=== PATIENT | female | born 1960 | race Caucasian/White ===

== ENCOUNTER 2020-08-16 07:57 | Observation (INO) | payer BC ==
[~2020-08-16] VITALS: Ht 157.5 cm; Wt 125.5 kg
--- NOTE | ~2020-08-16 | HEMODYNAMI ---
PATIENT:KIMBERLY KRUSE MEDICAL RECORD: [id number] : 58 [facility]# [id number] ADMISSION DATE: 08/16/20 Generatedon:114:15 Patient name: KIMBERLY KRUSE Patient #: [id number] SSN: [id number] : 1960 Date of study: 08/17/2020 Page: Of Hemodynamic Procedure Report Patient Data Patient Demographics First Name: KIMBERLY Gender: Female Last Name: AIXA : 1960 [facility] Initial: L Age: 60 year(s) Patient #: [id number] Race: Unknown SSN: [id number] Additional ID: [id number] Contact details [address]: [address] [place] [address] 8 State: [place] City: [place] Zip code: [address] Past Medical History Allergies Allergen Reaction Date Comments Reported Other allergy 08/17/2020 pcn, sULFA, mORPHINE Admission Admission Data Admission Date: 08/16/2020 Admission Time: 13:11 Admit Source: Emergency Insurance Payor: Private department health insurance Room #: D.2118 [facility] #: [id number] Height (in.): 61.81 BSA: 2.19 (m2) Height (cm.): 157 BMI: 50.71 (kg/m2) Weight (lbs.): 275.58 Weight (kg.): 125 Lab Results Lab Result Date: 08/17/2020 Lab Result Time: 0:00 Biochemistry Name Units Result Min Max BUN mg/dl 12 --(-*--)-- 7 18 Creatinine mg/dl 0.8 --(-*--)-- 0.6 1.3 eGFR ml/min 76.95799 *-(----)-- 90 120 NONAFRICAN CBC Name Units Result Min Max Hemoglobin g/dl 12.4 *-(----)-- 13.5 17.5 Procedure Procedure Types Cath Procedure Diagnostic Procedure [facility] w/Coronaries FFR/IVUS FFR Initial Sedation Charges Moderate Sedation 25-39 minutes Procedure Description Procedure Date Procedure Date: 08/17/2020 Procedure Start Time: 13:53 Procedure End Time: 14:14 Procedure Staff Name Function Rico Helm MD Performing Physician Loreta Cabral RT Monitor Ceasar Anthony RN Nurse Nataliia Ward RT Scrub Procedure Data Cath Procedure Fluoroscopy Diagnostic fluoroscopy Total fluoroscopy Time: 4.4 time: 4.4 min min Diagnostic fluoroscopy Total fluoroscopy dose: 972 dose: 972 mGy mGy Contrast Material Contrast Material Type Amount (ml) Isovue 300 77 Entry Location Entry Primary Successful Side Size Upsize Upsize Entry Closure Succes sful Closure Location (Fr) 1 (Fr) 2 (Fr) Remarks Device Remarks Femoral Right 5 Fr Exoseal artery Estimated blood loss: 10 ml Diagnostic catheters Device Type Used For End Catheter Placement MULTIPACK JL 4.0 5Fr Procedure catheter MULTIPACK 3DRC 5Fr Procedure catheter MULTIPACK Pigtail 5 Fr Ventriculography catheter MULTIPACK JL 4.0 5Fr Procedure catheter Procedure Complications No complications Procedure Medications Medication Administration Route Dosage 0.9% NaCl I.V. 100 ml/hr Oxygen etCO2 Nasal cannula 2 l/min Heparin Flush Bag added to field 2 bags (1000units/500ml NS) Lidocaine 2% added to field 20 Versed I.V. 1 mg Fentanyl I.V. 50 mcg Versed I.V. 1 mg Fentanyl I.V. 50 mcg Heparin Bolus I.V. 2000 units Hemodynamics Rest BSA: 2.19 (m2) HGB: 12.4 (g/dl) O2 Consumption: Estimated: 211.32 (ml/min) O2 Co nsumption indexed: Estimated:96.49 (ml/min/m) Heart Rate: 75 (bpm) Pressure Samples Time Site Value (mmHg) Purpose Heart Use Rate(bpm) 13:58 LV 121/8,13 Snapshot 81 Gradients Valve Time Site Site Mean SEP/DFP Peak To Heart Use 1 2 (mmHg) (sec/min) Peak Rate (mmHg) (bpm) Aortic 13:59 LV AO 77 Snapshots Pre Cath Intra NCS Post Cath Vital Signs Time Heart Resp SPO2 etCO2 NIBP (mmHg) Rhythm Pain Sedation Rate (ipm) (%) (mmHg) Status Level (bpm) 13:31:44 78 31 95 0 137/81(102) NSR 0 (11) 10(A) , No pain 13:35:54 69 31 96 30.6 138/77(106) NSR 0 (11) 10(A) , No pain 13:40:04 81 29 93 20.2 141/74(91) NSR 0 (11) 10(A) , No pain 13:44:14 80 21 95 42.6 124/75(103) NSR 0 (11) 10(A) , No pain 13:48:20 84 22 92 44.1 133/71(90) NSR 0 (11) 10(A) , No pain 13:52:30 87 26 92 38.1 125/69(93) NSR 0 (11) 10(A) , No pain 13:56:35 86 23 92 20.9 127/74(104) NSR 0 (11) 9(A) , No pain 14:00:41 90 20 89 26.9 120/78(96) NSR 0 (11) 9(A) , No pain 14:04:45 84 22 94 28.4 116/72(94) NSR 0 (11) 10(A) , No pain 14:09:46 88 21 94 26.2 132/69(88) NSR 0 (11) 10(A) , No pain 14:13:56 92 27 95 23.1 131/70(85) NSR 0 (11) 10(A) , No pain Medications Time Medication Route Dose Verified Delivered Reason Notes Effectiveness by by 13:39:30 0.9% NaCl I.V. 100 Ceasar Ceasar Per physician ml/hr Raj Anthony RN RN 13:39:40 Oxygen etCO2 2 Ceasar Ceasar for low 02 sats Nasal l/min Raj Anthony cannula RN RN 13:39:50 Heparin Flush added 2 Ceasar Ceasar used for Bag to bags Raj Anthony procedure (1000units/500ml field BAUTISTA RN NS) 13:40:00 Lidocaine 2% added 20ml Ceasar Ceasar for local to vial Lorigan Raj anesthetic field BAUTISTA RN 13:40:14 Versed I.V. 1 mg Ceasar Ceasar for sedation Raj Anthony RN RN 13:40:22 Fentanyl I.V. 50 Ceasar Ceasar for sedation kevon Anthony RN RN 13:50:29 Versed I.V. 1 mg Ceasar Ceasar for sedation Raj Anthony RN, RN 13:54:23 Fentanyl I.V. 50 Ceasar Ceasar for sedation kevon Anthony RN RN 14:03:29 Heparin Bolus I.V. 2,000 Ceasar Ceasar for units Raj Anthony anticoagulation RN barrel rifler button Log Time Note 12:10:42 Admit Source: Emergency department 12:11:08 Patient Height : 61.81 inches 12:11:16 Patient Weight : 275.58 lbs 12:11:27 Insurance Payor : Private health insurance 12:11:55 Lab Result : Hemoglobin 12.4 g/dl 12::55 Lab Result : eGFR NONAFRICAN 76.20891 ml/min 12:11:55 Lab Result : BUN 12 mg/dl 12:11:55 Lab Result : Creatinine 0.8 mg/dl 12:12:27 Procedure Status Urgent Heart Cath (IP). 12:42:50 Time tracking: Regular hours (M-F 7:00 - 5:00) 12:42:54 Plan of Care:Hemodynamics will remain stable., Cardiac rhythm will remain stable., Comfort level will be maintained., Respiratory function will remain adequate., Patient/ family verbilizes understanding of procedure., Procedure tolerated without complication., Recovers from procedure without complications.. 12:42:58 H&P Date Dictated: 08/17/2020 ER History on chart.. 13:17:12 Loreta HERBERT(R) sent for patient. Start room use. 13:30:32 Patient received from Med II to CCL 2 Alert and oriented. Tansferred to table in Supine position. 13:30:33 Warm blankets applied, and sonny hugger turned on for patient comfort. 13:30:34 Correct patient and procedure confirmed by team. 13:30:34 ECG and BP/O2 sat monitors applied to patient. 13:30:35 Vital chart was started 13:30:36 Baseline sample Acquired. 13:30:40 Rhythm: sinus rhythm 13:30:42 Full Disclosure recording started 13:30:46 Family in patients room. 13:30:49 Patient NPO since Midnight. 13:31:11 Patient allergic to Other allergypcn, sULFA, mORPHINE 13:31:13 Is the patient allergic to Iodine/contrast media? No. 13:31:15 Was the patient premedicated? Yes 13:31:16 Is patient on blood thinner?Yes 13:31:25 ACC The patient was administered the following blood thiners within the last 24 hours: ACCLovenox 13:31:28 Patient diabetic? Yes. 13:31:29 If diabetic: On Metformin? No 13:31:33 Snore? Yes 13:31:34 Sleep apnea? Yes 13:31:41 Patient pain scale 0/10 ?. 13:31:52 IV patent on arrival in right forearm with 0.9% NaCl at [facility]. 13:31:56 Lab results completed and on chart. 13:32:17 Right groin area was prepped with chlora-prep and draped in sterile fashion 13:32:19 Alarms reviewed by R. N. 13:32:19 Sharps counted by scrub and verified by R.N. 13:32:20 Physician arrived 13:32:27 Use device set Femoral Dx 13:39:14 ACIST Syringe (59749) opened to sterile field. 13:39:14 Bag Decanter (2002S) opened to sterile field. 13:39:14 Medline Cath Pack ([id number]) opened to sterile field. 13:39:16 ACIST Hand Control (66730) opened to sterile field. 13:39:16 ACIST Manifold (15780) opened to sterile field. 13:39:17 DIAGNOSTIC Multipack 5Fr catheter set (QW4346) opened to sterile field. 13:39:18 Tegaderm 4 x 4 (1626W) opened to sterile field. 13:39:19 SHEATH 5FR [place] (ULZ645) opened to sterile field. 13:39:20 EMERALD Guide Wire (038-264) opened to sterile field. 13:39:30 0.9% NaCl 100 ml/hr I.V. was administered by Ceasar Anthony RN; Per physician; Verbal order read back and verified. 13:39:33 --------ALL STOP TIME OUT------ 13:39:34 Final Timeout: patient, procedure, and site verified with staff and physician. All members of the team are in agreement. 13:39:40 Oxygen 2 l/min etCO2 Nasal cannula was administered by Ceasar Anthony RN; for low 02 sats; Verbal order read back and verified. 13:39:49 Right groin site verified by team. 13:39:50 Heparin Flush Bag (1000units/500ml NS) 2 bags added to field was administered by Ceasar Anthony RN; used for procedure; Verbal order read back and verified. 13:39:53 Fire Safety Assessment: A--An alcohol-based skin anteseptic being used preoperatively., C--Open oxygen or nitrous oxide is being used., D--An ESU, laser, or fiber-optic light is being used. 13:39:57 Physical assessment completed. ASA score P 2 - A patient with mild systemic disease as per Rico Helm MD. 13:40:00 Lidocaine 2% 20ml vial added to field was administered by Ceasar Anthony RN; for local anesthetic; Verbal order read back and verified. 13:40:00 2) 60-89 Mildly reduced kidney function, and other findings (as for stage 1) point to kidney disease. 13:40:04 Maximum allowable contrast dose (3.7 X eGFR X 0.75)213 ml. 13:40:08 Sedation plan: IV Moderate Sedation Medication:Versed, Fentanyl 13:40:14 Versed 1 mg I.V. was administered by Ceasar Anthony RN; for sedation; Verbal order read back and verified. 13:40:22 Fentanyl 50 mcg I.V. was administered by Ceasar Anthony RN; for sedation; Verbal order read back and verified. 13:42:55 Zero performed for pressure channel P1 13:43:06 Zero performed for pressure channel P1 13:50:29 Versed 1 mg I.V. was administered by Ceasar Anthony RN; for sedation; Verbal order read back and verified. 13:53:28 Procedure started. 13:53:50 Local anesthetic to right femoral artery with Lidocaine 2% by Rico Helm MD.INITIAL ACCESS ONLY 13:53:58 A 5 Fr sheath was inserted into the Right Femoral artery 13:54:20 j wire advanced. 13:54:23 Fentanyl 50 mcg I.V. was administered by Ceasar Anthony RN; for sedation; Verbal order read back and verified. 13:54:29 A MULTIPACK JL 4.0 5Fr catheter was advanced over the wire and used for Procedure. 13:55:18 LCA angiography performed. 13:57:09 Catheter removed. 13:57:16 A MULTIPACK 3DRC 5Fr catheter was advanced over the wire and used for Procedure. 13:57:37 RCA angiography performed. 13:57:40 Catheter removed. 13:57:49 A MULTIPACK Pigtail 5 Fr catheter was advanced over the wire and used for Ventriculography. 13:57:55 LV angiography performed. 13:57:58 LV gram done using SALAZAR 13:59:14 Catheter removed. 13:59:21 EF : 55 % 14:00:19 INFLATOR Merit BasixCompak (FO1116) opened to sterile field. 14:00:20 King OmniWire (71048) opened to sterile field. 14:03:29 Heparin Bolus 2,000 units I.V. was administered by Ceasar Anthony RN; for anticoagulation; Verbal order read back and verified. 14:09:02 A MULTIPACK JL 4.0 5Fr catheter was advanced over the wire and used for Procedure. 14:09:19 Pressure wire advanced. 14:09:25 pLAD lesion measured at .92 with IFR 14:09:34 Catheter removed. 14:09:45 Sheath removed intact; hemostasis achieved with Exoseal to the Right Femoral artery. 14:09:50 EXOSEAL 5Fr (EX500) opened to sterile field. 14:09:54 Procedure ended.(Physican Out) 14:10:41 Fluoroscopy time 04.40 minutes. 14:10:48 Fluoroscopy dose: 972 mGy 14:10:48 Flurop Dose total: 972 14:10:54 Dose Area Product 24143 mGy/cm. 14:11:04 Contrast amount:Isovue 300 77ml. 14:11:11 Maximum allowable dose exceeded? No. 14:11:12 Sharps counted by scrub and verified by R.N. 14:11:17 Insertion/operative site no bleeding no hematoma. 14:11:21 Post-op/insertion site Right Femoral artery dressed using a 4 x 4 and Tegaderm. 14:11:23 Post Procedure Pulses reassessed and unchanged 14:11:28 Post-procedure physical assessment completed. ASA score P 2 - A patient with mild systemic disease as per Rico Helm MD. 14:11:33 Post procedure rhythm: unchanged. 14:11:35 Estimated blood loss: 10 ml 14:11:37 Post procedure instruction explained to patient.Patient verbalizes understanding. 14:12:15 Procedure type changed to Cath procedure, Diagnostic procedure, LHC, LHC w/Coronaries, FFR/IVUS, FFR Initial, Sedation Charges, Moderate Sedation 25-39 minutes 14:12:44 Procedure and supply charges have been captured, reviewed, submitted and are correct. 14:13:44 Procedure Complication : No complications 14:13:46 Vital chart was stopped 14:13:57 [facility] Findings: mild to moderate CAD (<70%) 14:14:00 Operative report dictated upon procedure completion. 14:14:01 See physician's report for complete and final results. 14:14:03 Report given to [facility]. 14:14:08 Patient transfered to [facility] with Bed. 14:14:23 Procedure ended. 14:14:23 Full Disclosure recording stopped 14:14:30 End room use (Document Last) 14:15:01 End room use (Document Last) 14:15:31 End room use (Document Last) Device Usage Item Name Manufacture Quantity Catalog Hospital Part Current Minimal L ot# / Number Charge Number Stock Stock Serial# Code ACIST Acist 1 67610 563503 [id number] [id number] 20 Syringe Medical (53821) Systems Inc Bag Microtek 1 265851 15930 002005 5 Decanter Medical Inc. () Medline Medline 1 [id number] 130712 99534 096430 5 Cath Pack ([id number]) ACIST Hand Acist 1 15457 356760 248815 273077 5 Control Medical (34325) Systems Inc ACIST Acist 1 48204 665906 578971 151326 5 Manifold Medical (47436) Systems Inc DIAGNOSTIC Cardinal 1 [id number] 664074 90833 677916 30 MultipTwenty Jeans 5Fr catheter set (GH5921) Tegaderm 4 3M 1 1626W 228664 212875 723324 5 x 4 (1626W) SHEATH 5FR Terumo 1 JVS012 804806 139552 365184 5 [place] (CRE102) EMERALD Cardinal 1 502-455 691696 217253 224920 5 Guide Wire [facility] (502-455) MULTIPACK Cardinal 1 775847 5 JL 4.0 5Fr Health catheter MULTIPACK Cardinal 1 921405 5 3DRC 5Fr Health catheter MULTIPACK Cardinal 1 030876 5 Pigtail 5 Health Fr catheter INFLATOR Merit 1 [id number] 107613 817002 723679 15 [facility] Medical BasixCompak (LE7011) King King 1 [id number] 044388 98831 9961 5 OmniWire (93391) EXOSEAL 5Fr Cardinal 1 EX500 874283 098532 385840 10 (EX500) Health Signature Audit [place] Stage Time Signature Unsigned Intra-Procedure 08/17/2020 Loreta Cabral 2:15:02 PM RT(R) Intra-Procedure 08/17/2020 Ceasar 2:15:31 PM Raj RN Intra-Procedure 08/17/2020 Rico Ortiz 2:15:55 PM Willis PINEDA Signatures Performing Physician : Signature : Rico Helm MD Date : Time : Monitor : Loreta Cabral Signature : RT Date : Time : Nurse : Ceasar Anthony Signature : RN Date : Time : [facility] [address] [place] [address]
[2020-08-16] MEDS ORDERED: TRILEPTAL600 MG PO (08:21)
[2020-08-16] MEDS ORDERED: ZOCOR10 MG PO (08:22)
[2020-08-16] MEDS ORDERED: IBUPROFEN800 MG PO (08:22)
[2020-08-16] MEDS ORDERED: GEODON80 MG PO (08:22)
[2020-08-16] MEDS ORDERED: TRAZODONE HCL100 MG PO (08:23)
[2020-08-16 08:25] LABS: BILIRUBIN NEGATIVE (NEGATIVE); KETONE NEGATIVE (NEGATIVE); NITRITE NEGATIVE (NEGATIVE); UROBILINOGEN NORMAL mg/dL (< 2)
[2020-08-16 08:25] LABS: BASOPHILS 0.2 % (0-2); EOSINOPHILS 1.3 % (0-7); HEMATOCRIT 40.2 % (36.0-48.0); HEMOGLOBIN 12.9 g/dL (12-16); IMMATURE GRANULOCYTES 0.5 % (0-5); LYMPHOCYTE ABS# 4.03 10x3/uL (1.18-3.74); LYMPHOCYTES 31.6 % (15-50); MCH 29.1 pg (26.0-34.0); MCHC 32.1 g/dL (31.0-37.0); MCV 90.5 fL (80.0-100.0); MEAN PLATELET VOLUME 8.8 fL (7.4-10.4); MONOCYTES 6.8 % (2-11); NEUTROPHIL ABS# 7.61 10x3/uL (1.56-6.13); NEUTROPHILS 59.6 % (40-80); PLATELET COUNT 331 10x3/uL (130-400); RBC 4.44 10x6/uL (4.00-5.40); RDW 14.4 % (11.5-14.5); WBC 12.8 10x3/uL (4.8-10.8)
[2020-08-16 08:32] LABS: APTT 26.8 SECONDS (22.8-39.4); INR 1.03 (0.85-1.17); PROTIME 12.5 SECONDS (11.6-15.0)
[2020-08-16 08:33] LABS: CALC OSMOLALITY 274 mosm/kg (275-300); CALCIUM 8.8 mg/dL (8.5-10.1); CARBON DIOXIDE 25.6 mmol/L (21.0-32.0); CHLORIDE - SERUM 99 mmol/L (98-107); CREATININE - SERUM 0.8 mg/dL (0.6-1.3); D-DIMER-QUANTITATIVE 0.35 ug/mLFEU (0.20-0.54); GLUCOSE 226 mg/dL (74-106); POTASSIUM - SERUM 4.4 mmol/L (3.5-5.1); SODIUM 134 mmol/L (136-145); UREA NITROGEN 13 mg/dL (7-18); eGFR NON AFRICAN AMERICAN 77 mL/min (90-120)
--- NOTE | 2020-08-16 08:42 | NUR ---
BP 174/90. QUESTIONED PATIENT ON ANY HISTORY OF HYPERTENSION AND IF SHE TAKES MEDICATION FOR HYPERTENSION. PATIENT INITIALLY STATES THE SHE DOES NOT TAKE MEDICATION. THE SHE STATES SHE TAKES MEDICATION ONLY WHEN SHE NEEDS IT. QUESTIONED PATIENT ON FREQUENCY OF BP MEASUREMENTS AT HOME TO KNOW SHE NEEDS MEDICATION. PATIENT STATES THAT SHE DOES NOT TAKE HER BP. ASKED PATIENT HOW SHE KNOWS SHE NEEDS BP MEDICATION IF SHE DOES NOT TAKE HOME BP. NOW STATES "OH, I DO TAKE MY BP. I HAVE ONE OF THOSE MACHINES AND TAKE IT EVERY DAY". ALSO STATES SHE TAKES A BP MEDICATION EVERY NIGHT.
[2020-08-16 08:49] LABS: ALBUMIN 3.5 g/dL (3.4-5.0); ALKALINE PHOSPHATASE 124 U/L (30-120); ALT (SGPT) 38 U/L (10-68); BILIRUBIN - TOTAL 0.26 mg/dL (0.2-1.3); C-REACTIVE PROTEIN 1.2 mg/dL (0.0-0.9); PRO BNP 13 pg/mL (0-125); PROTEIN - SERUM 7.4 g/dL (6.4-8.2); THYROID STIMULATING HORMONE 1.93 uIU/mL (0.36-3.74)
[2020-08-16 08:50] LABS: LIPASE 37 U/L (73-393); TROPONIN-I < 0.017 ng/mL (0.000-0.060)
--- NOTE | 2020-08-16 08:55 | NUR ---
UP TO BATHROOM. ASKS WHY HER URINE IS "WHITE" AND WHY SHE HAS TO GO TO THE BATHROOM SO OFTEN. PATIENT EDUCATED THAT INCREASED FLUID INTAKE WILL INCREASE URINE OUTPUT. PATIENT COMPETENTLY TEACHES BACK EFFECTIVELY BY STATING "I HAVE BEEN DRINKING MORE WATER AND FEWER SODA LATELY".
--- NOTE | 2020-08-16 09:37 | NUR ---
UP TO BATHROOM.
--- NOTE | 2020-08-16 10:20 | NUR ---
PATIENT C/O HUNGER. KISHORE TRAY GIVEN.
--- NOTE | 2020-08-16 12:45 | NUR ---
TO NUCLEAR MED FOR CARDIOLITE SCAN.
--- NOTE | 2020-08-16 13:10 | NUR ---
BACK TO ROOM.
--- NOTE | 2020-08-16 13:52 | NUR ---
RECEIVED PT TO ROOM 2117 VIA WHEELCHAIR, PT A/O X4, RESP EVEN AND NONLABORED ON RA. PT A LITTLE EMOTIONAL, HAVING FAMILY ISSUES. PT HAS X2 IV'S WHICH ARE NOT WORKING. ORIENTED PT TO ROOM AND CALL LIGHT. ALL NEEDS MET, WILL ASSESS PT AND START PLAN OF CARE.
[2020-08-16] MEDS ORDERED: NEXIUM40 MG PO (13:55)
[2020-08-16 14:28] VITALS: BP 177/86; Ht 157.5 cm; Wt 125.5 kg
[2020-08-16 14:32] LABS: CREATINE KINASE 147 UL (21-215); TROPONIN-I < 0.017 ng/mL (0.000-0.060)
--- NOTE | 2020-08-16 15:28 | NUR ---
NEW 20G IV STARTED TO RT FA XI STICK, TAPED TO SKIN. INITIAL AND DATED, PT TOLEREATED WELL.
[2020-08-16 16:00] VITALS: BP 117/66
[2020-08-16] MEDS ORDERED: ALBUTEROL SULF8.5 GM INH (17:12)
[2020-08-16 19:43] LABS: CKMB 0.8 U/L (0.0-3.6); CREATINE KINASE 131 UL (21-215)
[2020-08-16 19:44] LABS: TROPONIN-I < 0.017 ng/mL (0.000-0.060)
[2020-08-16 20:00] VITALS: BP 164/82
--- NOTE | 2020-08-16 20:40 | NUR ---
RECIEVED C/O CHEST , NECK AND SHOULDER PAIN. V/S'S 98.1,164/82,93,20,95% O2 SAT. ON ROOM AIR. EKG COMPLETED. SHE APPEARS VERY ANXIOUS OVER HER MEDICATIONS. REPORTED BY OFF GOING THAT SHE TOOK HER OWN ATIVAN. TOLD THIS NURSSE SHE ALWAYS TAKES IT AFTER DINNER AND DID NOT LIKE THE WAY HER MEDICATIONS WERE ORDERED. ASKED HER TO TRY AND RELAX. TURNED LIGHT OFF AND 10MIN LATER STATED PAIN RESOLVED. SHE HAS BEEN PONDMAN LIGHT NUMEROUS TIMES ALREADY. WILL TRY AND KEEP HER CAMED DOWN.
[2020-08-17 00:01] VITALS: BP 124/63
[2020-08-17 02:21] LABS: BASOPHILS 0.1 % (0-2); EOSINOPHILS 1.7 % (0-7); HEMATOCRIT 38.6 % (36.0-48.0); HEMOGLOBIN 12.4 g/dL (12-16); IMMATURE GRANULOCYTES 0.5 % (0-5); LYMPHOCYTE ABS# 3.73 10x3/uL (1.18-3.74); MCH 29.2 pg (26.0-34.0); MCHC 32.1 g/dL (31.0-37.0); MEAN PLATELET VOLUME 8.7 fL (7.4-10.4); MONOCYTES 6.3 % (2-11); NEUTROPHIL ABS# 5.24 10x3/uL (1.56-6.13); NEUTROPHILS 53.4 % (40-80); PLATELET COUNT 290 10x3/uL (130-400); RBC 4.24 10x6/uL (4.00-5.40); RDW 14.8 % (11.5-14.5); WBC 9.8 10x3/uL (4.8-10.8)
[2020-08-17 02:58] LABS: ALBUMIN 3.2 g/dL (3.4-5.0); ALKALINE PHOSPHATASE 113 U/L (30-120); ALT (SGPT) 38 U/L (10-68); BILIRUBIN - TOTAL 0.28 mg/dL (0.2-1.3); CALC OSMOLALITY 280 mosm/kg (275-300); CALCIUM 8.6 mg/dL (8.5-10.1); CARBON DIOXIDE 28.3 mmol/L (21.0-32.0); CHLORIDE - SERUM 100 mmol/L (98-107); CKMB 0.6 U/L (0.0-3.6); CREATINE KINASE 95 UL (21-215); CREATININE - SERUM 0.8 mg/dL (0.6-1.3); GLUCOSE 262 mg/dL (74-106); MAGNESIUM - SERUM 1.9 mg/dL (1.8-2.4); PHOSPHOROUS 3.8 mg/dL (2.5-4.9); POTASSIUM - SERUM 4.4 mmol/L (3.5-5.1); PROTEIN - SERUM 6.8 g/dL (6.4-8.2); SODIUM 136 mmol/L (136-145); UREA NITROGEN 12 mg/dL (7-18); eGFR NON AFRICAN AMERICAN 77 mL/min (90-120)
[2020-08-17 03:03] LABS: TROPONIN-I < 0.017 ng/mL (0.000-0.060)
[2020-08-17 04:30] VITALS: BP 137/68
[2020-08-17 08:10] VITALS: BP 115/62
[2020-08-17 09:56] LABS: LDL-HDL RATIO 1.8 ratio (1.5-3.5)
--- NOTE | 2020-08-17 14:36 | NUR ---
PATIENT RECIEVED FROM PHYSICIAN RELATIONS SPECIALIST ALERT AND ORIENTED, ASKING FOR FOOD MENU FOR LUNCH. RIGHT GROIN ANGIO ACCESS SITE CLEAN DRY AND INTACT, NO HEMATOMA. DISCHARGE ORDERS RECIEVED.
[2020-08-17] MEDS ORDERED: GLUCOPHAGE500 MG PO (15:50)
--- NOTE | 2020-08-17 16:51 | NUR ---
DISCHARGE EDUCATION PROVIDED TO PATIENT AND . BOTH VERBALIZED UNDERSTANDING. THEY ARE FROM [place] AND ASKED ABOUT HOW THEY WOULD FOLLOW UP. NURSE INSTRUCTED TO FOLLOW UP WITH PCP IN A WEEK AND GET A USER EXPERIENCE MANAGER TO FOLLOW UP WELL. PT REPORTED SHE DID NOT HAVE A PCP. NURSE EDUCATED ON HOW TO ACQUIRE A PCP. THERE WAS ONE NEW PRESCRIPTION FOR METFORMIN. NURSE GAVE GOOD RX CARD AND CHECKED ANDERSEN THAT WAS 4 DOLLARS BECAUSE PT SAID SHE HAD NO MONEY. PT SAID SHE COULD COME UP WITH 4 DOLLARS. PT AND VERBALIZED UNDERSTANDING OF ALL EDUCATION BUT WERE INTERUPTING THE NURSE REPEATEDLY. NURSE UNSURE IF EDUCATION WAS WELL RECIEVED. DISCHARGED VIA WHEELCHAIR TO VEHICLE WITH SPOUSE.
--- NOTE | 2020-08-18 08:06 | OP ---
PATIENT NAME: KIMBERLY KRUSE MEDICAL RECORD: [id number] :58 LOCATION:D.M2 D.2118 ADMISSION DATE:08/16/20 SURGEON: SYEDA HERNANDEZ MD DATE OF OPERATION: 08/17/2020 PROCEDURE: Left heart catheterization, selective coronary angiography, right femoral artery approach plus iFR wire. CATHETERS: A 5-Kyrgyz sheath, 5/4 left and right Batsheva, 5/4 pig as well as iFR wire. The procedure was well tolerated. The patient returned to the roque. Sheath removed. ExoSeal device was placed. FINDINGS: Left ventriculography in 30-degree SALAZAR view: Normal wall motion and normal systolic function. CORONARY ANATOMY: LEFT MAIN: Left main is free of disease. LAD: Has a questionable proximal stenosis; however, this is normal. The iFR wire was normal. CIRCUMFLEX: Left dominant system is free of disease. RIGHT CORONARY ARTERY: Rudimentary, free of disease. IMPRESSION: Normal left ventricular systolic function, normal coronary anatomy. TRANSINT:[id number] Voice Confirmation ID: [id number] DOCUMENT ID: [id number] SYEDA HERNANDEZ MD at 0806 CC: [id number] DICTATION DATE: 08/17/20 141 CLERICAL ASSISTANT: 08/17/202026 DIS IN 08/17/20 [place] [id number] [place] [address]
--- NOTE | 2020-08-18 08:06 | EC ---
PATIENT:KIMBERLY KRUSE DATE OF SERVICE: 08/16/20 SEX: F MEDICAL RECORD: [id number] DATE OF : 58 LOCATION:D.M2 D.211 AGE OF PATIENT: 60 ADMISSION DATE: 08/16/20 REFERRING PHYSICIAN: INTERPRETING PHYSICIAN: SYEDA HERNANDEZ MD ECHOCARDIOGRAM REPORT ECHO CHARGES 4 ECHO COMPLETE Date: 08/17/20 CLINICAL DIAGNOSIS: CP ECHOCARDIOGRAPHIC MEASUREMENTS (adult normal given) AC root (d.<3.7cm) 3.7 cm LV Septum d (<1.2 cm> 1.1 cm Valve Excursion 1.8 cm LV Septum (systole) 1.7 cm Left Atria (s.<4.0cm> 3.8 cm LVPW d(<1.2cm) 1.0 cm RV (d.<2.3cm) 3.4 cm LVPW (sytole) 1.2 cm LV diastole(<5.6CM) 5.0 cm MV E-F(>70mm/sec) cm LV systole 4.0 cm LVOT Diameter 1.9 cm MV exc.(>10mm) 1.5 cm Est.ejection fraction (50-75%) % DOPPLER: LVIT cm/sec A 94 cm/sec E 86 cm/sec LA cm/sec RVSP 31 mmHg LVOT 96 cm/sec AOP1/2T m/s Asc. Ao 129 cm/sec RVOT 62 cm/sec RA cm/sec PA 105 cm/sec AV Gradient Peak 6.7 mmHg AV Mean 3.7 mmHg AV Area 2.6 cm MV Gradient Peak 4.8 mmHg MV Mean 2.8 mmHg MV Area cm COMMENTS: Director Emergency Services: Amandeep COTE Hyperbaric Nurse: 3 Dr. [place] TAPE# Pericardial Effusion N DATE OF SERVICE: Adequate 2D, color-flow imaging, spectral Doppler, and M-Mode. FINDINGS: No LVH. LV internal dimensions are normal. Wall motion is normal. EF is greater than or equal to 55%. Aortic valve is tricuspid. No evidence of stenosis by Doppler interrogation. Left atrium is normal at 3.8 cm. Mitral valve shows no prolapse. Trace MR. Right side is grossly normal. Trace TR. TRANSINT:[id number] Voice Confirmation ID: [id number] DOCUMENT ID: [id number] ECHOCARDIOGRAM REPORT [id number] KIMBERLY KRUSE GREGORY A MD at 0806 CC: [id number] DICTATION DATE: 08/17/20 161 MUSIC LIBRARY ASSISTANT: 08/17/20 2302 DIS IN 08/17/20 [facility] [address] [place] [address]
--- NOTE | 2020-08-18 08:06 | CN ---
PATIENT NAME:KIMBERLY KRUSE MEDICAL RECORD: [id number] : 58 LOCATION:. D.2118 ADMIT DATE: 08/16/20 ACCOUNT: [id number] CONSULTING PHYSICIAN: SYEDA HERNANDEZ MD REFERRING PHYSICIAN: SUSI ORONA MD DATE OF CONSULTATION: 08/17/2020 HISTORY OF PRESENT ILLNESS: A 60-year-old female with history of hypertension, hyperlipidemia, strong family history of coronary artery disease, admitted with chest pain, actually symptomatology began at home. Her sister has a history of coronary artery disease, took one of her nitroglycerin, relieved with second one, continued about her day; however, had recurrent symptomatology including episode last night. We are asked to see her concerning cardiovascular status. PAST MEDICAL HISTORY: Includes; 1. History of hypertension. 2. Hyperlipidemia. 3. Obstructive pulmonary disease. 4. Bipolar. ALLERGIES: PENICILLIN, SULFA, MORPHINE. SOCIAL HISTORY: Nonsmoker, nondrinker. Easily takes care all of her ADLs. Actually is in town visiting her sister who has been diagnosed with lung carcinoma. MEDICATIONS: Include simvastatin 10 mg p.o. every day, Trileptal 1200 mg at bedtime, Geodon 160 at bedtime, trazodone 300 at bedtime, ibuprofen 800 t.i.d., Nexium 40 every day. REVIEW OF SYSTEMS: The patient reports easy bruising but reports no swollen glands. The patient reports no fever, no night sweats, no significant weight gain, no significant weight loss. No significant exercise tolerance. The patient reports no dry eyes, no irritation, no vision change. Patient reports no difficulty hearing and no ear pain. Patient reports no frequent nose bleeds or nose and sinus problems. Patient reports on arm pain on exertion. No shortness of breath while lying down. No history of heart murmur. Patient reports no cough, no wheezing or coughing up blood. Patient reports no abdominal pain, no vomiting. Normal appetite. No diarrhea and not vomiting blood. No nausea and no constipation. Patient reports no incontinence. No difficulty urinating. No hematuria. No increased frequency. Patient reports no muscle aches. No weakness, no arthralgias, no back pain. No swelling of the extremities. Patient reports no abnormal mole, no jaundice, no rashes. Reports no loss of consciousness. No weakness and no numbness. No seizures, dizziness, or headaches. The patient reports no depression, no sleep disturbance, feeling safe in a relationship and no alcohol abuse. Patient reports on fatigue. Reports no runny nose or sinus pressure. No itching, no hives, and no frequent sneezing. PHYSICAL EXAMINATION: GENERAL: Pleasant, no acute distress, appears stated age. VITAL SIGNS: Blood pressure 116/62, pulse 80 and regular. HEENT: Normocephalic, atraumatic. NECK: No JVD or bruit. HEART: Regular, II/ systolic ejection murmur. CONSULT REPORT [id number] KIMBERLY KRUSE LUNGS: Clear to excursion. ABDOMEN: Soft and nontender. EXTREMITIES: Pulses 2+. No edema. NEUROLOGIC: Grossly intact. DIAGNOSTIC DATA: EKG shows nonspecific ST-T changes inferolaterally. IMPRESSION: Acute coronary syndrome with risk factors. PLAN: For angiography and intervention based on the above. TRANSINT:[id number] Voice Confirmation ID: [id number] DOCUMENT ID: [id number] SYEDA HERNANDEZ MD at [id number] CC: [id number] DICTATION DATE: 08/17/20 0900 EXAMINATION PROCTOR: 08/17/20 1259 DIS IN 08/17/20 [place] [id number] [place] [id number]
== END 2020-08-17 16:55 | disposition home or self-care (01) ==
LOC: D.ER 07:57 → D.M2 13:11 → OBSVTIME 08-17 16:50 → D.M2 08-17 16:55
PROVIDERS: Family Medicine; Internal Medicine Interventional Cardiology; ADMIT Emergency Medicine; ATTEND Emergency Medicine
DX: I24.9 Acute ischemic heart disease, unspecified (principal); R07.9 Chest pain, unspecified; I10 Essential (primary) hypertension; E78.5 Hyperlipidemia, unspecified; J44.9 Chronic obstructive pulmonary disease, unspecified; D72.829 Elevated white blood cell count, unspecified; F31.9 Bipolar disorder, unspecified; F41.9 Anxiety disorder, unspecified; E11.65 Type 2 diabetes mellitus with hyperglycemia